=== PATIENT | female | born 1955 | race Caucasian/White ===

== ENCOUNTER → 2019-06-02 | Outpatient (CLI) | payer OTHER ==
--- NOTE | 2019-06-02 16:44 | FL ---
MODIFIED SWALLOW / DEGLUTITION STUDY DATE OF EXAM: 06/02/2019 CLINICAL HISTORY: 63-year-old female dysphagia, GERD, cough, left ear pain. Voice change. TECHNIQUE: Deglutition study is performed utilizing thin liquid barium, honey and nectar thick liqui d barium, barium thick applesauce, and barium coated cracker. Total fluoroscopy time: 48 seconds. Total images: None. Real-time fluoroscopy support was provided to speech pathology. COMPARISON: None. FINDINGS: The oral and pharyngeal phases show satisfactory initiation and propagation with all modalities teste d. Normal mastication is seen with solid modalities tested. There is no evidence of penetration or aspiration with any modality tested. There is anterior endplate spondylosis causing minimal impressi on onto the posterior wall of the hypopharynx and cervical esophagus. No significant pharyngeal resid ue was appreciated. IMPRESSION: No penetration or aspiration. Please refer to speech therapist notes for further details if necessar y.
== END | disposition home or self-care (01) ==
LOC: RADFLMAIN 10:38
PROVIDERS: ATTEND Family Medicine
DX: K21.9 Gastro-esophageal reflux disease without esophagitis (principal)
CPT/HCPCS: 74230

== ENCOUNTER → 2020-08-24 | Outpatient (CLI) | payer MEDICARE, OTHER ==
--- NOTE | 2020-08-24 09:16 | MR ---
EXAMINATION TYPE: MR cspine/lspine wo con DATE OF EXAM: 08/24/2020 COMPARISON: None HISTORY: Low back pain, cervicalgia TECHNIQUE: Multiplanar, multisequence imaging of the cervical and lumbar spine is performed without I V contrast. FINDINGS: Cervical spine MRI: Cervical vertebral bodies show preserved height. Minimal retrolisthesis grade 1 C5-6, minimal grade 1 anterolisthesis C3-4. There is loss of disc height and signal greatest at C5-6, spondylosis with gary e minimal endplate discogenic marrow signal change. Cervical cord signal is maintained. There is no s ignificant spinal stenosis. C2-3 unremarkable C3-4 shows some foraminal encroachment due to uncovertebral joint hypertrophy and facet arthropathy c hange. C4-5 shows uncovertebral joint hypertrophy encroaching minimally on the foramina. No disc herniation. C5-6: Posterior extension) complex causes anterior mass effect on the thecal sac, moderate spinal sarah nosis. There is bilateral foraminal encroachment due to uncovertebral joint hypertrophy. There is gary e associated facet arthropathy. C6-7: Within normal limits C7-T1 unremarkable. IMPRESSION: Degenerative disc disease, multilevel foraminal encroachment. Lumbar spine MRI: Sagittal images of the lumbar spine show vertebral body heights and alignment to appear satisfactory. Loss of disc height and signal is present at T12-L1 and to lesser extent L1-2, L2-3, L3-4, L4-5. Min imal intrasubstance grade 1 L5-S1. Bilateral spondylolysis may be present at L5. The conus medullaris is normal in position and signal. There is multilevel spondylosis with endplate discogenic marrow si gnal change. L5-S1: There is extensive facet arthropathy change with some posterior lateral aspect of the thecal s ac which is minimal. Difficult to exclude spondylolysis no significant spinal stenosis or evidence of disc herniation. L4-5: No significant foraminal encroachment. Posterior broad-based disc bulge causes only slight ante rior mass effect on thecal sac. Facet arthropathy with hypertrophy of ligamentum flavum causes telecommunications specialist ior lateral aspect of the thecal sac. No significant spinal stenosis. L3-4: Facet arthropathy with hypertrophy ligamentum flavum is present. There is a posterior lateral a spect of the thecal sac. Posterior broad-based disc bulge causes only minimal anterior aspect of the thecal sac. No significant foraminal encroachment. L2-3: Unremarkable L1-2: Within normal limits. IMPRESSION: Degenerative disc disease, facet arthropathy. Possible spondylolysis at L5, there is an a nterolisthesis grade 1 L5-S1.
== END | disposition home or self-care (01) ==
LOC: MERGE 07:22 → RADMRIMAIN 07:22
PROVIDERS: ATTEND Physician Assistant Medical
DX: M43.17 Spondylolisthesis, lumbosacral region (principal); M50.30 Other cervical disc degeneration, unspecified cervical region; M51.36 Other intervertebral disc degeneration, lumbar region; M47.816 Spondylosis without myelopathy or radiculopathy, lumbar region
CPT/HCPCS: 72141; 72148

== ENCOUNTER → 2022-02-01 | Outpatient (CLI) | payer MEDICARE ==
--- NOTE | 2022-02-01 13:36 | XR ---
EXAMINATION TYPE: XR cervical spine comp DATE OF EXAM: 02/01/2022 COMPARISON: None HISTORY: Cervicalgia thickness and neck range of motion TECHNIQUE: 5 view cervical spine FINDINGS: Odontoid is limited with overlying occiput. Prevertebral space is normal. There is disc spa ce narrowing C5-6. Posterior disc space narrowing is present C4-5 and C6-7. Anterior vertebral body s purring is present C3-C6. Posterior spinal lamellar line appears intact. There is moderate foraminal narrowing on the right at C3-4 and mild foraminal narrowing C5-6. On the left there is mild to moderate foraminal narrowing C5-3-4 through C5-6. Facet degenerative changes ar e evident. IMPRESSION: 1. Degenerative disc changes and foraminal narrowing mid cervical spine discussed above.
== END | disposition home or self-care (01) ==
LOC: RADXRYALE 09:46
PROVIDERS: ATTEND Physician Assistant
DX: M50.323 Other cervical disc degeneration at C6-C7 level (principal); M99.71 Connective tissue and disc stenosis of intervertebral foramina of cervical region
CPT/HCPCS: 72050

== ENCOUNTER 2024-07-21 08:15 | Day surgery (SDC) | payer MEDICARE ==
[2024-07-21] MEDS ORDERED: LACTATED RINGERS 1,000 ML BAG ONE (10:40)
[2024-07-21] MEDS ORDERED: PROPOFOL 10 MG/ML 20 ML VIAL IV ONE (10:47)
--- NOTE | 2024-07-24 15:56 | PCN ---
PROCEDURE NOTE REQUESTING PHYSICIAN: Dr. Medellin. BRIEF HISTORY: The patient is a 68-year-old pleasant white female scheduled for an elective colonoscopy as a part of screening for colorectal neoplasia. Her last colonoscopy was 12 years ago. PROCEDURE PERFORMED: Colonoscopy. PREOPERATIVE DIAGNOSIS: Screening for colon cancer. ANESTHESIA: IV sedation per Anesthesia. DESCRIPTION OF PROCEDURE: After informed consent was obtained from the patient, she was brought into the endoscopy unit. IV conscious sedation was administered by Anesthesia under continuous monitoring. Initial digital rectal examination was normal. The Olympus CF-190 video colonoscope was then inserted into the rectum, gradually advanced into the cecum. Careful examination was performed and the scope was gradually being withdrawn. The ileocecal valve and the appendiceal orifice were visualized and appeared normal. The prep was excellent. Mucosa of the cecum, ascending colon, transverse colon, descending colon, sigmoid colon, and rectum appeared normal. In the rectum, retroflexion was performed, no lesions were noted. Scattered sigmoid diverticulosis was seen and the patient tolerated the procedure well. IMPRESSION: 1. Scattered sigmoid diverticulosis. 2. No evidence of colorectal neoplasia. RECOMMENDATIONS: Findings of this examination were discussed with the patient as well as her family. She was advised to have repeat screening colonoscopy in 10 years. MMODL / IJN: [id number] /
== END 2024-07-21 11:40 ==
LOC: ORWHC2ENDO 08:15
PROVIDERS: ATTEND Internal Medicine Gastroenterology
DX: Z12.11 Encounter for screening for malignant neoplasm of colon (principal); K57.30 Diverticulosis of large intestine without perforation or abscess without bleeding; K21.9 Gastro-esophageal reflux disease without esophagitis; F41.9 Anxiety disorder, unspecified; F32.A Depression, unspecified; J30.2 Other seasonal allergic rhinitis; Z79.899 Other long term (current) drug therapy
CPT/HCPCS: 45378

== ENCOUNTER → 2024-09-02 | Outpatient (CLI) | payer MEDICARE ==
--- NOTE | 2024-09-02 16:01 | US ---
EXAMINATION TYPE: US venous doppler duplex LE RT DATE OF EXAM: 09/02/2024 9:58 AM COMPARISON: NONE CLINICAL INDICATION: Female, 68 years old with history of M70.41 PREPATELLAR BURSITIS M79.661 RLE ZORAIDA N I80.9 PHLEBITIS; Bursitits. No hx of DVT. Not on blood thinners SIDE PERFORMED: Right TECHNIQUE: The lower extremity deep venous system is examined utilizing real time linear array sonog silverio with graded compression, color doppler sonography, and spectral doppler. VESSELS IMAGED: Common Femoral Vein Deep Femoral Vein Greater Saphenous Vein * Femoral Vein Popliteal Vein Small Saphenous Vein * Proximal Calf Veins (* superficial vessels) Right Leg: No evidence for DVT seen IMPRESSION: Grayscale, color doppler, spectral doppler imaging performed of the deep veins of the lo wer extremities. There is normal flow, compressibility, vascular waveforms. [facility], , 09/02/2024 3:59 PM
== END | disposition home or self-care (01) ==
LOC: RADUSWWP 09:43
PROVIDERS: ATTEND Orthopaedic Surgery
DX: M70.41 Prepatellar bursitis, right knee (principal); I80.9 Phlebitis and thrombophlebitis of unspecified site; Z68.26 Body mass index [BMI] 26.0-26.9, adult